=== PATIENT | female | born 1975 | race African-American/Black ===

== ENCOUNTER 2021-10-14 12:02 | Outpatient (CLI) | payer OTHER ==
[2021-10-14 17:15] LABS: HIV (1/2) Antibody/Antigen Non-Reactive (NonReactive); HIV 1/2 INDEX 0.11 S/CO (<1.00); Vitamin D, 25 Hydroxy 8.9 ng/ml (> 30.0)
== END 2021-10-14 12:03 | disposition home or self-care (01) ==
LOC: MADLABBHPM 12:02 → MADLAB 12:03
PROVIDERS: ATTEND Family Medicine
DX: Z01.419 Encounter for gynecological examination (general) (routine) without abnormal findings (principal); Z11.4 Encounter for screening for human immunodeficiency virus [HIV]
CPT/HCPCS: 82306; 87389; 87624; 88175

== ENCOUNTER 2022-02-21 12:44 | Emergency (ER) | payer OTHER | END 2022-02-21 13:58 | disposition home or self-care (01) | LOC: MADERS 12:44 | DX: J06.9 Acute upper respiratory infection, unspecified (principal); R07.89 Other chest pain | CPT/HCPCS: 71046 ==